=== PATIENT | male | born 1985 | race African-American/Black ===

== ENCOUNTER 2022-03-18 01:59 | Emergency (ER) | payer SELFPAY ==
[~2022-03-18] VITALS: Ht 182.9 cm; Wt 91.0 kg
[2022-03-18] MEDS ORDERED: ONDANSETRON HCL 4MG/2ML INJ IV STA (03:01)
[2022-03-18] MEDS ORDERED: MORPHINE SULFATE 4 MG/ML CPJ (NOT FOR IM USE) IV STA (03:01)
[2022-03-18] MEDS ORDERED: SODIUM CHLORIDE 0.9% 1,000 ML IV ONE (03:15)
[2022-03-18 03:43] LABS: BASOPHILS % 0.5 % (0.0-2.0); HEMATOCRIT. 59.6 % (42.0-52.0); HEMOGLOBIN. 19.7 g/dL (14.0-18.0); LYMPHOCYTES % 22.8 % (20.0-50.0); MEAN CORPUSCULAR HEMOGLOBIN 30.6 pg (28.0-32.0); MEAN CORPUSCULAR VOLUME 92.5 fL (80.0-94.0); MEAN PLATELET VOLUME 9.1 fl (7.4-10.4); MONOCYTES % 3.3 % (2.0-8.0); NEUTROPHILS % 73.4 % (40.0-76.0); PLATELET 243 x1000/uL (130-400); RED BLOOD CELL COUNT 6.44 mill/uL (4.7-6.1); RED CELL DISTRIBUTION WIDTH 14.7 % (11.6-14.6)
[2022-03-18 03:57] LABS: CHLORIDE 105 mEq/L (98-107)
[2022-03-18 04:06] LABS: ETHANOL BLOOD 135 mg/dL
[2022-03-18] MEDS ORDERED: PROT20 MT (05:03)
[2022-03-18] MEDS ORDERED: ONDA4TAB50 MT (05:03)
[2022-03-18 05:20] VITALS: BP 152/88
== END 2022-03-18 05:40 | disposition home or self-care (01) ==
LOC: ER 01:59
DX: K29.20 Alcoholic gastritis without bleeding (principal); Y90.6 Blood alcohol level of 120-199 mg/100 ml; I10 Essential (primary) hypertension
CPT/HCPCS: 36415; 74176; 80053; 80320; 83690; 85025; 96361; 96374; 96375; 99284; J2270; J2405; J7030; G0480